=== PATIENT | female | born 1995 | race Caucasian/White ===

== ENCOUNTER 2018-10-09 15:02 | Emergency (ER) | payer BC ==
[~2018-10-09] VITALS: Ht 154.9 cm; Wt 79.8 kg
[2018-10-09 15:15] VITALS: BP 125/68; Ht 154.9 cm; Wt 79.8 kg
== END 2018-10-09 17:00 | disposition home or self-care (01) ==
LOC: ED 15:02
DX: J40 Bronchitis, not specified as acute or chronic (principal); J45.909 Unspecified asthma, uncomplicated
CPT/HCPCS: J1100